=== PATIENT | female | born 1985 | race Caucasian/White ===

== ENCOUNTER 2017-03-23 18:46 | Emergency (ER) | payer SELFPAY ==
[2017-03-23 19:36] VITALS: BP 152/108
== END 2017-03-23 23:33 | disposition left against medical advice (07) ==
LOC: ED 18:46
DX: Z53.21 Procedure and treatment not carried out due to patient leaving prior to being seen by health care provider (principal)

== ENCOUNTER 2019-05-22 16:17 | Emergency (ER) | payer MEDICAID ==
[~2019-05-22] VITALS: Ht 165.1 cm; Wt 52.2 kg
[2019-05-22 16:21] VITALS: BP 128/63; Ht 165.1 cm; Wt 52.2 kg
== END 2019-05-22 18:19 | disposition home or self-care (01) ==
LOC: ED 16:17
DX: R21 Rash and other nonspecific skin eruption (principal)
CPT/HCPCS: J7512; Q0163